=== PATIENT | male | born 1930 | race Caucasian/White ===

== ENCOUNTER → 2016-05-23 | Outpatient (CLI) | payer OTHER ==
[~2016-05-23] MED LIST: ASPI81TA85 PO; CO Q100C10 PO; CRES5TAB PO; MECL25CH PO; MULT1TAB8 PO; VITA250L PO
== END ==
LOC: M ONCR 11:13
PROVIDERS: ATTEND Radiology Radiation Oncology
DX: C34.80 Malignant neoplasm of overlapping sites of unspecified bronchus and lung (principal)

== ENCOUNTER → 2016-08-15 | Outpatient (CLI) | payer OTHER ==
--- NOTE | 2016-08-15 12:09 | RADONC ---
RADIATION ONCOLOGY FOLLOWUP NOTE DATE: 08/15/2016 CHART NUMBER: [id number]. DIAGNOSIS: Small cell lung cancer. STAGE: Limited. ECOG PERFORMANCE: 1. FOLLOWUP NOTE: Mr. Coon is a very pleasant, 86-year-old white male with the diagnosis of a limited stage small cell lung carcinoma who is presenting to us today for routine followup visit 1 year and 2 months post completion of external beam radiation therapy. The patient presents today reporting that he is doing quite well with no complaints at this time related to his radiation therapy or disease. He has no urinary or bowel difficulties and no bone pain. REVIEW OF SYSTEMS: The patient's review of systems is positive for some continued shortness of breath, which is not any worse than it was. His review of systems is otherwise noncontributory. Denies nausea, vomiting, fevers, chills, night sweats, diplopia, headaches, anxiety or depression, anorexia, weight loss, visual disturbances, chest pain, urinary or bowel difficulties, bone pain, or neurological problems. PHYSICAL EXAMINATION: The patient is a well-developed, well-nourished male in no acute distress. HEENT exam is normocephalic, atraumatic. Extraocular movements are intact. There is no palpable cervical, supraclavicular, infraclavicular, axillary, or inguinal lymphadenopathy present. The patient's right lung is clear to auscultation and percussion. His left upper lobe is also clear to auscultation and percussion. There are some rales and rhonchi present over the left lower and middle lobes. Heart has a regular rate and rhythm. Abdomen is benign with no hepatosplenomegaly, masses, or tenderness. Rectal examination reveals a normal anal sphincter tone. Skeletal examination reveals no tenderness to pressure or percussion of the bony skeleton. Extremities reveal no clubbing, cyanosis, or edema. Neurologic exam is grossly intact, as is the remainder of the physical examination. ASSESSMENT: The patient is clinically stable at this time and will be seen by us again in 6 months for further followup. He will also continue to be followed by his other physicians as well. A CT scan is scheduled for next week, 08/28/2016. cc: Patti Jensen MD *Dr.Stephen Mi *Drew Alejandre DO
== END ==
LOC: M ONCR 10:44
PROVIDERS: ATTEND Radiology Radiation Oncology
DX: C34.02 Malignant neoplasm of left main bronchus (principal)

== ENCOUNTER → 2016-10-03 | Outpatient (CLI) | payer OTHER ==
--- NOTE | 2016-10-03 20:23 | REP ---
Whole body PET CT scan: Comparison is 10/19/2015. Whole body PET scanning is performed from skull base to the upper thighs. Neck and supraclavicular areas. There are no hypermetabolic foci. This is unchanged. Chest: There is a new pleural-based 1 cm nodule anteriorly in the right middle lobe adjacent to the calcified pleural plaques, demonstrating borderline hypermetabolic uptake with a standard uptake value of 2.4. This nodule was not present on the comparison PET scan and was not present on the chest CT dated 08/28/2016. This could represent a small focal zone of transient atelectasis. However, follow-up CT is required to document whether this is transient or persistent. There are no other uptake foci in the chest. Abdomen, pelvis and upper thighs: There are no hypermetabolic foci. Impression: There is a new 1 cm left lung nodule anteriorly, pleural-based, in the right middle lobe demonstrating borderline hypermetabolic uptake. This was not present on the comparison chest CT of 08/28/2016 and was not present on the comparison CT scan. Transient atelectasis versus new lung nodule are diagnostic considerations. I recommend follow-up CT to determine whether this is persistent or transient. The CT scan is performed with 8.6 mCi of F 18 Signed by Reece Hammond MD 10/03/2016 08:15 P
== END ==
LOC: M PLARAD 08:04
PROVIDERS: ATTEND Internal Medicine Medical Oncology
DX: C34.90 Malignant neoplasm of unspecified part of unspecified bronchus or lung (principal)
CPT/HCPCS: 78815; A9552

== ENCOUNTER → 2016-10-18 | Outpatient (CLI) | payer OTHER ==
[~2016-10-18] MED LIST changes: +DEXA4TA PO
--- NOTE | 2016-10-19 13:11 | RADONC ---
RADIATION ONCOLOGY CONSULTATION NOTE DATE: 10/18/2016 CHART NUMBER: [id number] DIAGNOSIS: Small cell lung carcinoma. STAGE: metastatic. ECOG performance status one. CONSULTATION NOTE: Mr. Coon is a very pleasant 86-year-old white male with a diagnosis of metastatic small cell lung carcinoma who is presenting to us today for consideration of palliative radiation therapy for brain metastases. HISTORY OF PRESENT ILLNESS: The patient is well-known to our department and completed a course of thoracic consolidative radiation on 06/16/2015. He has done well since, but recently began having some headaches. A CT scan of the brain was done on 10/12/2016 and revealed two enhancing nodules, one on the right cerebellum and the other in the right basal ganglia region. These were consistent with metastatic disease. One lesion measured 3.5 cm and the other lesion measured 2.2 cm. The patient has now been referred to us for consideration of external beam radiation therapy to the brain. In addition, a PET scan was done on 10/03/2016 which has now shown a new 1 cm left lung nodule anteriorly which was pleural based. This was located in the right middle lobe and was borderline hypermetabolic. The lesion was not present on comparison chest CT of 08/28/2016 and was not present on other comparison CT scans. It was therefore concerning for a possible new lesion. REVIEW OF SYSTEMS: The patient's review of systems is positive for the general physical limitations secondary to his old age. He does have some instability in his gait and occasional headaches. He has had no seizure-like activity. REVIEW OF SYSTEMS: The patient's review of systems is otherwise noncontributory. Denies nausea, vomiting, fevers, chills, night sweats, diplopia, headaches, anxiety or depression, anorexia, weight loss, visual disturbances, chest pain, urinary or bowel difficulties, bone pain, or neurological problems. PHYSICAL EXAMINATION: The patient is a well-developed, well-nourished male in no acute distress. HEENT exam is normocephalic, atraumatic. Extraocular movements are intact. There is no palpable cervical, supraclavicular, infraclavicular, axillary, or inguinal lymphadenopathy present. Lungs are clear to auscultation and percussion. Heart has a regular rate and rhythm. Abdomen is benign with no hepatosplenomegaly, masses, or tenderness. Skeletal examination reveals no tenderness to pressure or percussion of the bony skeleton. Extremities reveal no clubbing, cyanosis, or edema. Neurologic exam is grossly intact, as is the remainder of the physical examination. ASSESSMENT: Clearly, the patient is a candidate for palliative radiation therapy and I have so informed him. I have discussed with the patient in detail the potential benefits as well as possible acute and chronic sequelae of external beam radiation therapy. We discussed logistics of treatment planning, simulation and subsequent fractionated daily radiation treatments. I have scheduled the patient for the next available simulation slot and radiation treatments will begin subsequently. In addition, I have given the patient a prescription for Decadron to begin today. I have given him 4 mg p.o. b.i.d. I have personally reviewed the patients PET scan results as well as his CT scan. Once we have completed palliative radiation for his brain mets, further discussion will be undertaken with regards to his lung nodule. cc: MD Drew Carrillo MD *Dr.Stephen Shmuel WHITE
== END ==
LOC: M ONCR 11:26
PROVIDERS: ATTEND Radiology Radiation Oncology
DX: C34.02 Malignant neoplasm of left main bronchus (principal); C79.31 Secondary malignant neoplasm of brain

== ENCOUNTER 2016-10-19 09:59 | Outpatient (RCR) | payer OTHER ==
[~2016-10-19 09:59] MED LIST changes: +MECL1CHW2 PO; -MECL25CH PO
--- NOTE | 2016-10-19 10:52 | RADONC ---
RADIATION ONCOLOGY SIMULATION NOTE: DATE: 10/19/2016 CHART NO: [id number] Mr. Coon was taken to the CT scan for CT simulation of his whole brain field. CT was accomplished without difficulty or discomfort. Radiation treatment planning is underway and radiation treatments will begin subsequently. An immobilization device including a mask was created without difficulty or discomfort. It will be used throughout the course of treatment. I was physically present throughout the course of CT simulation. The patient has initiated his Decadron 4 mg twice a day.
--- NOTE | 2016-10-29 12:32 | RADONC ---
RADIATION ONCOLOGY PROGRESS NOTE: DATE: 10/29/2016 CHART NUMBER: [id number]. PROGRESS NOTE: Mr. Coon is presently at a dose of 900 cGy to his whole brain and is tolerating treatments quite well at this point with no complaints related to his radiation therapy. He is having no headaches or other problems. REVIEW OF SYSTEMS: The patient's review of systems is noncontributory. Denies nausea, vomiting, fevers, chills, night sweats, diplopia, headaches, anxiety or depression, anorexia, weight loss, visual disturbances, chest pain, urinary or bowel difficulties, bone pain, or neurological problems. PHYSICAL EXAMINATION: The patient's skin is in good condition with no evidence of radiation change present. There is no moist or dry desquamation. The remainder of his physical exam remains unchanged. Mr. Coon is tolerating treatments quite well and radiation will continue as scheduled.
== END 2016-11-02 ==
LOC: M ONCR 09:59
PROVIDERS: ATTEND Radiology Radiation Oncology
DX: C79.31 Secondary malignant neoplasm of brain (principal); C34.02 Malignant neoplasm of left main bronchus

== ENCOUNTER → 2016-10-19 | Outpatient (CLI) | payer OTHER | LOC: M RAD 09:53 | PROVIDERS: ATTEND Radiology Radiation Oncology | DX: C34.90 Malignant neoplasm of unspecified part of unspecified bronchus or lung (principal) ==

== ENCOUNTER 2016-11-07 10:28 | Outpatient (RCR) | payer OTHER ==
--- NOTE | 2016-11-09 14:04 | RADONC ---
RADIATION ONCOLOGY PROGRESS NOTE: DATE OF SERVICE: 11/07/2016 CHART NUMBER: [id number] Mr. Coon is presently at a dose of 2400 cGy to his whole brain and is tolerating treatments quite well at this point with no complaints related to his radiation therapy. He is having no headaches or other problems. REVIEW OF SYSTEMS: The patient's review of systems is noncontributory. He denies nausea, vomiting, fevers, chills, night sweats, diplopia, headaches, anxiety or depression, anorexia, weight loss, visual disturbances, chest pain, urinary or bowel difficulties, bone pain, or neurological problems. PHYSICAL EXAMINATION: The patient's skin is in good condition with no evidence of radiation change present. There is no moist or dry desquamation. The remainder of his physical exam remains unchanged. Mr. Coon is tolerating treatments quite well and radiation will continue as scheduled.
--- NOTE | 2016-11-09 14:09 | RADONC ---
RADIATION ONCOLOGY TREATMENT SUMMARY: DATE OF SERVICE: 11/09/2016 CHART NUMBER: [id number] DIAGNOSIS: Small cell lung carcinoma. STAGE: Metastatic. ECOG PERFORMANCE STATUS: 1 Mr. Coon is a very pleasant 86-year-old white male with the diagnosis of metastatic small cell lung carcinoma who presented to us for consideration of palliative radiation therapy for brain metastases. We treated the patient to the whole brain for a total dose of 3000 cGy delivered in 10 fractions of 300 cGy each over 17 elapsed days from 10/23/2016 through 11/09/2016. The patient's brain was treated on a linear accelerator utilizing a 6 MV photon beam via parallel opposed lateral cesar. Mr. Coon tolerated his treatments quite well and was able complete therapy as prescribed without interruption. I have scheduled the patient to see me again in 1 month for further followup. He will also continue to be followed by his other physicians as well. cc: MD Drew Carrillo MD Stephen Graziano, MD
== END 2016-12-03 ==
LOC: M ONCR 10:28
PROVIDERS: ATTEND Radiology Radiation Oncology
DX: C79.31 Secondary malignant neoplasm of brain (principal); C34.02 Malignant neoplasm of left main bronchus

== ENCOUNTER → 2016-12-12 | Outpatient (CLI) | payer OTHER ==
--- NOTE | 2016-12-12 11:37 | RADONC ---
RADIATION ONCOLOGY FOLLOWUP NOTE DATE: 12/12/2016 CHART NUMBER: [id number] DIAGNOSIS: Small cell lung carcinoma. STAGE: Metastatic. ECOG PERFORMANCE STATUS: 3 FOLLOWUP NOTE: Mr. Coon is a very pleasant 86-year-old white male with the diagnosis of metastatic small cell lung carcinoma who is presenting to us today for routine followup visit 1 month post completion of external beam radiation therapy for brain metastases. The patient presents today reporting that he came remains quite weak. His family tells me he is quite confused. He also has some decreased hearing ability. The patient finished his Decadron as per the taper schedule approximately a week or so ago. He is having no headaches at this time. REVIEW OF SYSTEMS: The patient's review of systems is positive for weakness as well as some confusion and some decreased hearing ability. He also continues to have some instability of gait. His review of systems is otherwise noncontributory. He denies headaches, nausea, vomiting, fevers, chills. He does have occasional night sweats. He has no bone pain. He has no urinary or bowel difficulties. PHYSICAL EXAMINATION: The patient is a chronically ill, cachectic white male in no acute distress. HEENT: Exam is normocephalic, atraumatic. Extraocular movements are intact. There is no palpable cervical, supraclavicular, infraclavicular, axillary or inguinal lymphadenopathy present. His lungs are clear to auscultation and percussion. His heart has regular rate and rhythm. He is neurologically intact. Skeletal examination reveals no tenderness to pressure percussion of the bony skeleton. ASSESSMENT: The patient is continuing to clinically deteriorate. I discussed with the family the possibility of hospice. We also spoke about the possibility of reinitiating his steroids, however, he is having no headaches at this time and has already been off them for more than a week. I do not know if some of his symptoms are related to rapid a steroid withdrawal or not at this point. Therefore, I have not recommended that he reinitiate Decadron. The patient is scheduled for CT scans in [place] tomorrow. I have asked that they bring a copy of the scans as well as the reports to my office for further evaluation. Further recommendations will be made pending those scans. The patient is scheduled to be seen by Dr. Jensen next week for discussion of systemic therapy and other issues. We will continue to follow this patient closely. I have given him a brochure for a consultation with hospice. cc: MD Drew Carrillo MD Stephen Graziano, MD
== END ==
LOC: M ONCR 10:08
PROVIDERS: ATTEND Radiology Radiation Oncology
DX: C34.02 Malignant neoplasm of left main bronchus (principal); C79.31 Secondary malignant neoplasm of brain